=== PATIENT | male | born 1945 | race Caucasian/White ===

== ENCOUNTER 2021-04-18 09:00 | Inpatient (IN) | payer OTHER ==
[~2021-04-18] VITALS: Ht 188 cm; Wt 113.0 kg
[2021-04-18 11:29] LABS: APPEARANCE,URINE Clear (CLEAR); BILIRUBIN,URINE Negative (NEGATIVE); COLOR,URINE Yellow (YELLOW); GLUCOSE, URINE (UA) Negative (NEGATIVE); KETONES,URINE Negative (NEGATIVE); LEUKOCYTE ESTERASE ,URINE Negative (NEGATIVE); NITRATE,URINE Negative (NEGATIVE); OCCULT BLOOD,URINE Negative (NEGATIVE); PROTEIN,URINE Negative (NEGATIVE); UROBILINOGEN,URINE 0.2 mg/dL (0.2-1.0)
[2021-04-18 11:31] LABS: CREATININE 1.1 mg/dL (0.5-1.5); POTASSIUM 5.1 mmol/L (3.5-5.1)
[2021-04-18 11:44] LABS: BASOPHILS % (AUTO) 0.5 % (0.0-5.0); EOSINOPHILS % (AUTO) 2.9 % (0.0-8.0); HEMATOCRIT 46.3 % (42-54); LYMPHOCYTES % (AUTO) 24.3 % (21.0-51.0); MEAN CORPUSCULAR HEMOGLOBIN 30.4 pg (27.0-33.0); MEAN CORPUSCULAR HGB CONC 32.4 g/dL (32.0-36.0); MEAN CORPUSCULAR VOLUME 93.9 fL (79-99); MONOCYTES % (AUTO) 8.4 % (3.0-13.0); NEUTROPHILS % (AUTO) 63.3 % (40.0-77.0); PLATELET COUNT (AUTO) 274 K/uL (130-400); RED BLOOD CELL COUNT(AUTO) 4.93 MIL/uL (4.50-6.20); RED CELL DISTRIBUTION WIDTH 13.9 % (11.0-15.5); WHITE BLOOD COUNT (AUTO) 8.2 K/uL (4.8-10.8)
[2021-04-18 11:54] LABS: INR 0.99 (0.85-1.15); PROTHROMBIN TIME 10.8 SEC (9.6-11.6)
[2021-04-18 11:56] LABS: PARTIAL THROMBOPLASTIN TIME 31.8 SEC (26.3-35.5)
[2021-04-18 12:03] VITALS: BP 154/74
[2021-04-18] MEDS ORDERED: DICY10CA13 PO (15:39)
[2021-04-18] MEDS ORDERED: METO-391 PO (15:39)
[2021-04-18] MEDS ORDERED: LISI20TA24 PO (15:39)
[2021-04-18] MEDS ORDERED: AMLO-258 PO (15:39)
[2021-04-18] MEDS ORDERED: LEVO112C4 PO (15:39)
[2021-04-18] MEDS ORDERED: PARO-37 PO (15:39)
[2021-04-18] MEDS ORDERED: DULA0.75 SQ (15:39)
[2021-04-18] MEDS ORDERED: METF-446 PO (15:39)
[2021-04-21] VITALS (34 sets, daily range): BP systolic 102–161; BP diastolic 40–79
[2021-04-21] MEDS ORDERED: NACL 0.9% 1000ML 1,000 ML IV ONE (06:02)
[2021-04-21] MEDS ORDERED: IODIXANOL 320 MG/ML 100 ML VIAL ONE ×2 (06:43→09:14)
[2021-04-21] MEDS ORDERED: HEPARIN 10,000 UNIT/10ML (1,000 UNIT/ML) VIAL ONE ×3 (06:43→11:10)
[2021-04-21] MEDS ORDERED: CEFAZOLIN SODIUM 1 GM VIAL ONE ×2 (06:44→10:50)
[2021-04-21] MEDS ORDERED: LIDOCAINE HCL MPF 1% 5ML VIAL ONE (07:04)
[2021-04-21] MEDS ORDERED: FENTANYL CITRATE PF 50 MCG/1 ML 2ML VIAL ONE ×2 (07:05→10:53)
[2021-04-21] MEDS ORDERED: PROPOFOL 10 MG/ML 20ML VIAL IV ONE (07:05)
[2021-04-21] MEDS ORDERED: MIDAZOLAM HCL 1 MG/ML 2ML VIAL ONE ×2 (07:05→12:12)
[2021-04-21] MEDS ORDERED: ROCURONIUM 10MG/1ML SYR 10 MG/ML ML ONE (07:05)
[2021-04-21] MEDS ORDERED: ROCURONIUM BROMIDE 10MG/1ML 5ML VL ONE (08:24)
[2021-04-21] MEDS ORDERED: PHENYLEPHRINE HCL 10 MG/ML 1ML VIAL IV ONE (10:41)
[2021-04-21] MEDS ORDERED: NACL 0.9% 1000ML 1,000 ML IV SCH (11:00)
[2021-04-21] MEDS ORDERED: PHARMACY COMMUNICATION MISC SCH (11:00)
[2021-04-21] MEDS ORDERED: MORPHINE 4 MG SYG IV PRN (11:00)
[2021-04-21] MEDS ORDERED: DEXTROSE 50%-WATER 50 ML DISP.SYRIN IV PRN (11:00)
[2021-04-21] MEDS ORDERED: MORPHINE 5 MG/ML VIAL (5MG OR GREATER DOSE) IV PRN (11:00)
[2021-04-21] MEDS ORDERED: ONDANSETRON 4MG INJ IV PRN (11:00)
[2021-04-21] MEDS ORDERED: NOREPINEPHRINE 4MG/NS 250ML 250 ML IV SCH (11:30)
[2021-04-21] MEDS: INSULIN HUMULIN R 100 UNIT/ML 3ML SQ SCH ×3 (11:30→21:00)
[2021-04-21] MEDS ORDERED: NITROGLYCERIN 50MG/D5W 250ML 1 BOT IV PRN (11:30)
[2021-04-21] MEDS ORDERED: PROTAMINE SULFATE 10 MG/ML 25ML VIAL IV ONE (11:31)
[2021-04-21] MEDS ORDERED: OCTYL 2-CYANOACRYLATE 1 EACH TP ONE (11:46)
[2021-04-21] MEDS: DICYCLOMINE HCL 20 MG TAB PO SCH ×2 (12:30→18:00)
[2021-04-21] MEDS ORDERED: HYDROMORPHONE 1 MG INJ IVP PRN (15:30)
[2021-04-21] MEDS: CEFAZOLIN SODIUM 1 GM VIAL IVP SCH (21:25)
[2021-04-22] VITALS (17 sets, daily range): BP systolic 87–152; BP diastolic 35–80
[2021-04-22] MEDS: CEFAZOLIN SODIUM 1 GM VIAL IVP SCH (04:00)
[2021-04-22 06:36] LABS: CREATININE 1.1 mg/dL (0.5-1.5); POTASSIUM 4.4 mmol/L (3.5-5.1)
[2021-04-22 06:46] LABS: HEMATOCRIT 38.8 % (42-54); MEAN CORPUSCULAR HEMOGLOBIN 31.3 pg (27.0-33.0); MEAN CORPUSCULAR HGB CONC 33.2 g/dL (32.0-36.0); MEAN CORPUSCULAR VOLUME 94.2 fL (79-99); RED BLOOD CELL COUNT(AUTO) 4.12 MIL/uL (4.50-6.20); RED CELL DISTRIBUTION WIDTH 13.9 % (11.0-15.5); WHITE BLOOD COUNT (AUTO) 11.1 K/uL (4.8-10.8)
[2021-04-22] MEDS ORDERED: LEVOTHYROXINE 112 MCG TABLET PO SCH (07:30)
[2021-04-22] MEDS ORDERED: LISINOPRIL 20 MG TABLET PO SCH (09:00)
[2021-04-22] MEDS ORDERED: AMLODIPINE 5 MG TAB PO SCH (09:00)
[2021-04-22] MEDS ORDERED: PAROXETINE HCL 20 MG TABLET PO SCH (09:00)
[2021-04-22] MEDS ORDERED: METOPROLOL SUCCINATE 50 MG TAB.SR.24H PO SCH (09:00)
[2021-04-22] MEDS: DICYCLOMINE HCL 20 MG TAB PO SCH (09:06)
[2021-04-28] MEDS ORDERED: **HM** TRULICITY 0.75MG SQ SCH (09:00)
== END 2021-04-22 11:45 | disposition home or self-care (01) | DRG 269 ==
LOC: EDSTATUS 09:00 → DAHIP 04-21 05:25 → 2CH 04-21 09:37
PROVIDERS: ADMIT Internal Medicine; ATTEND Internal Medicine
PROC: 04UL0KZ Supplement Left Femoral Artery with Nonautologous Tissue Substitute, Open Approach (ICD-10-PCS; 2021-04-21)
PROC: B410YZZ Fluoroscopy of Abdominal Aorta using Other Contrast (ICD-10-PCS; 2021-04-21)
PROC: B415YZZ Fluoroscopy of Inferior Mesenteric Artery using Other Contrast (ICD-10-PCS; 2021-04-21)
PROC: 04LB3DZ Occlusion of Inferior Mesenteric Artery with Intraluminal Device, Percutaneous Approach (ICD-10-PCS; 2021-04-21)
PROC: 04V03EZ Restriction of Abdominal Aorta with Branched or Fenestrated Intraluminal Device, One or Two Arteries, Percutaneous Approach (ICD-10-PCS; principal; 2021-04-21 07:00)
PROC: 04CL0ZZ Extirpation of Matter from Left Femoral Artery, Open Approach (ICD-10-PCS; 2021-04-21 07:00)
DX: I71.4 Abdominal aortic aneurysm, without rupture (principal); J44.9 Chronic obstructive pulmonary disease, unspecified; Z87.891 Personal history of nicotine dependence; E11.9 Type 2 diabetes mellitus without complications; I10 Essential (primary) hypertension; E03.9 Hypothyroidism, unspecified; E66.9 Obesity, unspecified; E78.5 Hyperlipidemia, unspecified; F32.9 Major depressive disorder, single episode, unspecified; Z20.822 Contact with and (suspected) exposure to COVID-19; G89.29 Other chronic pain; M54.9 Dorsalgia, unspecified; Z85.820 Personal history of malignant melanoma of skin; Z79.82 Long term (current) use of aspirin; Z82.49 Family history of ischemic heart disease and other diseases of the circulatory system; Z68.32 Body mass index [BMI] 32.0-32.9, adult
CPT/HCPCS: 34705; 34712; 34713; 34812; 36415; 37242; 71046; 80048; 81003; 82948; 85025; 85027; 85610; 85730; 86850; 86900; 86901; 86923; 87635; 93005; A4344; A4606; C1725; C1760; C1763; C1769; C1887; C1894; G0378; J0690; J1644; J2250; J2270; J2370; J2704; J2720; J3010; J3490; J7030; J7040; J7120; Q9967